=== PATIENT | female | born 1965 | race Caucasian/White ===

== ENCOUNTER 2020-08-05 11:12 | Emergency (ER) | payer BC ==
[~2020-08-05] VITALS: Ht 165.1 cm; Wt 100.0 kg
[2020-08-05] MEDS ORDERED: CETI10CH PO (11:38)
[2020-08-05] MEDS ORDERED: LISI20TA33 PO (11:38)
[2020-08-05] MEDS ORDERED: METF-838 PO (11:38)
[2020-08-05] MEDS ORDERED: PHEN-501 PO (11:38)
[2020-08-05] MEDS ORDERED: PROAAER10 INH (11:38)
[2020-08-05] MEDS ORDERED: FLUT1BLS2 IH (11:38)
[2020-08-05] MEDS ORDERED: ATOR1TAB21 PO (11:38)
[2020-08-05] MEDS ORDERED: SERT25TA85 PO (11:38)
[2020-08-05] MEDS ORDERED: METO1TAB32 PO (11:38)
[2020-08-05] MEDS ORDERED: FAMO20TA PO (11:38)
[2020-08-05] MEDS ORDERED: ZOLO25TA PO (11:38)
[2020-08-05] MEDS ORDERED: MIRA3350 PO (11:38)
[2020-08-05] MEDS ORDERED: ALPR1TAB6 PO (11:38)
--- NOTE | 2020-08-05 14:29 | REP ---
INDICATION: pain/swelling/recent travel COMPARISON: None. TECHNIQUE: Real time compression and duplex Doppler interrogation of the bilateral lower extremity deep venous system is performed. Compression ultrasound is performed of the bilateral peroneal and posterior tibial veins. FINDINGS: Bilaterally, the common femoral, superficial femoral and popliteal veins are fully compressible with transducer pressure and demonstrate normal spontaneous and phasic flow, without evidence of deep venous thrombosis. No thrombus is seen in the bilateral visualized portions of the peroneal and posterior tibial veins. IMPRESSION: No evidence of deep venous thrombosis of the bilateral lower extremity femoral popliteal venous system. <Electronically signed by Jas Liao > 08/05/20 [id number]
[2020-08-05 14:38] LABS: BASO % 0.7 % (0.0-1.0); EOS % 0.4 % (0.0-3.0); HEMATOCRIT 37.2 % (36.0-47.0); HEMOGLOBIN 12.4 g/dl (12.0-15.5); LYMPH # 1.3 10^3/uL (1.5-5.0); LYMPH % 23.6 % (24.0-44.0); MEAN CORPUSCULAR HEMOGLOBIN 28.4 pg (27.0-33.0); MEAN CORPUSCULAR HGB CONC 33.3 g/dl (32.0-36.5); MEAN CORPUSCULAR VOLUME 85.1 fl (80.0-96.0); MONO # 0.3 10^3/uL (0.0-0.8); MONO % 4.9 % (2.0-8.0); NEUTROPHILS # 3.8 10^3/uL (1.5-8.5); PLATELET COUNT, AUTOMATED 278 10^3/uL (150-450); RED BLOOD COUNT 4.37 10^6/uL (4.00-5.40); WHITE BLOOD COUNT 5.5 10^3/uL (4.0-10.0)
[2020-08-05 15:08] LABS: ALBUMIN 4.4 GM/DL (3.2-5.2); ALT/SGPT 29 U/L (12-78); BILIRUBIN,DIRECT 0.3 MG/DL (0.0-0.2); BILIRUBIN,TOTAL 1.1 MG/DL (0.2-1.0); BLOOD UREA NITROGEN 10 MG/DL (7-18); CALCIUM LEVEL 9.6 MG/DL (8.5-10.1); CARBON DIOXIDE LEVEL 31 MEQ/L (21-32); CHLORIDE LEVEL 108 MEQ/L (98-107); CK-MB VALUE MASS < 1.0 NG/ML (<3.6); CPK CREATINE PHOSPHOKINASE 125 U/L (26-192); GLOMERULAR FILTRATION RATE > 60.0 (>51); GLUCOSE, FASTING 135 MG/DL (70-100); NT-PRO BNP 56 PG/ML (<125); POTASSIUM SERUM 3.8 MEQ/L (3.5-5.1); SODIUM LEVEL 142 MEQ/L (136-145); TOTAL PROTEIN 7.5 GM/DL (6.4-8.2); TROPONIN I < 0.02 NG/ML (< 0.10)
[2020-08-05 15:26] VITALS: BP 136/72
== END 2020-08-05 18:10 | disposition home or self-care (01) ==
LOC: M ED 11:12
DX: E86.0 Dehydration (principal); M79.604 Pain in right leg; R22.41 Localized swelling, mass and lump, right lower limb; E11.9 Type 2 diabetes mellitus without complications; I10 Essential (primary) hypertension; K21.9 Gastro-esophageal reflux disease without esophagitis; K58.8 Other irritable bowel syndrome; N80.9 Endometriosis, unspecified; E66.9 Obesity, unspecified; F32.9 Major depressive disorder, single episode, unspecified; F41.9 Anxiety disorder, unspecified; Z88.1 Allergy status to other antibiotic agents; Z88.2 Allergy status to sulfonamides; Z79.899 Other long term (current) drug therapy